=== PATIENT | female | born 1955 | race African-American/Black ===

== ENCOUNTER 2017-02-07 06:25 | Day surgery (SDC) | payer BC ==
[~2017-02-07] VITALS: Ht 151.1 cm; Wt 105.0 kg
[2017-02-07] VITALS (9 sets, daily range): BP systolic 103–147; BP diastolic 73–86; PULSE 78–89; RESP 18–20; TEMP 98.2–98.4; O2SAT 92–98
[~2017-02-07 06:25] MED LIST: 1-ME1LIQ PO; CLON.1 PO; FURO1TAB93 PO; GLIM4 PO; GLUCTAB PO; METO50CR PO; SIMV40 PO
[2017-02-07] MEDS ORDERED: GLIM4TAB PO (06:50)
[2017-02-07] MEDS ORDERED: CALC500T37 PO (06:50)
[2017-02-07] MEDS ORDERED: SIMV40TA PO (06:50)
[2017-02-07] MEDS ORDERED: METF500T PO (06:50)
[2017-02-07] MEDS ORDERED: METO50TA PO (06:50)
[2017-02-07] MEDS ORDERED: FURO40TA PO (06:50)
[2017-02-07] MEDS ORDERED: AMLO10TA2 PO (06:50)
[2017-02-07] MEDS ORDERED: WARF-23 PO (06:50)
[2017-02-07] MEDS ORDERED: CLON0.1T PO (06:50)
[2017-02-07] MEDS ORDERED: WARF-20 PO (06:50)
[2017-02-07] MEDS ORDERED: SODIUM CHLOR 0.9% 1000 ML IV SCH (07:00)
[2017-02-07 07:33] LABS: PROTHROMBIN TIME - PATIENT 10.9 SEC (9.8-11.6)
[2017-02-07] MEDS ORDERED: LIDOCAINE 1%/EPINEPHrine 1:100,000 SOLN 20 ML VIAL ONE (07:55)
[2017-02-07] MEDS ORDERED: MIDAZOLAM HCL 2 MG/2 ML VIAL ONE (08:01)
--- NOTE | 2017-02-07 09:06 | PD.RAD ---
Post CT Procedure Prog Note Pre Procedure Diagnosis: (1) Breast CA Post Procedure Diagnosis: (1) Breast CA Procedure Date: Feb 07, 2017 Supervising Radiologist: Cb Winter Anesthesia: Conscious Sedation Plan of Activity Patient to Unit: [facility] Patient Condition: Good See PACS Report for procedural detail/treatment Cb Winter MD Feb 07, 2017 09:06
[2017-02-07] MEDS ORDERED: oxyCODONE/ACETAMINOPHEN 5 MG/325 MG TAB PO PRN (09:15)
--- NOTE | 2017-02-07 09:38 | RADRPT ---
EXAM DATE/TIME: 02/07/2017 08:19 [facility] COMPARISON: No previous studies available for comparison. INDICATIONS : History of metastatic breast CA with near complete response to therapy. Solitary residual enlarging n odule in the left lung base. Biopsy has been requested SEDATION TIME: 30 minutes BIOPSY SITE: Left lung MEDICATION(S): 1.) 2.5 mg midazolam (Versed) IV 2.) 125 mcg fentanyl (Sublimaze) IV DEVICE(S): 1.) 18 gauge Tabor blunt needle 2.) 20 gauge Temno core biopsy needle MEDICAL HISTORY : Carcinoma, breast. SURGICAL HISTORY : Mastectomy, left. ENCOUNTER: Initial ACUITY: 1 day PAIN SCORE: 0/10 LOCATION: Left chest A total of five core specimen(s) were obtained and sent to the laboratory for pathologic evaluation. PROCEDURE: 1. CT guided lung biopsy. 2. Conscious sedation with continuous EKG and oximetry monitoring. 3. EKG and oximetry remained stable throughout the procedure. Prior to the procedure informed consent was obtained. Any appropriate prior imaging studies were rev iewed. Using automated exposure control and adjustment of the mA and/or kV according to patient size, radiation dose was kept as low as reasonably achievable to obtain optimal diagnostic quality images. DICOM format image data is available electronically for review and comparison. The site was prepped in a sterile fashion. Full sterile technique was used, including cap, mask, luís rile gloves and gown and a large sterile sheet. Hand hygiene and 2% chlorhexidine and/or betadine/al cohol prep was utilized per protocol for cutaneous antisepsis. The skin and subcutaneous tissues wer e infiltrated with local anesthetic solution. With CT guidance the previously identified target was localized. Biopsy was performed using the presc ribed needle as above. In total, five 20 gauge core biopsies were performed. Adequate hemostasis was obtained with compression at the puncture site. Follow-up CT scan reveals no pneumothorax. Conscious sedation was performed with the prescribed dosages and duration as above in the presence of an independent trained radiology nurse to assist in the monitoring of the patient. EKG and oximetry remained stable throughout the procedure. The patient tolerated the procedure well and there were no complications. The patient was sent to Radiology Outpatient Unit in stable condition. CONCLUSION: Uncomplicated CT guided biopsy. Cb Winter MD on February 07, 2017 at 9:35 Board Certified Radiologist. This report was verified electronically.
--- NOTE | 2017-02-07 12:46 | RADRPT ---
EXAM DATE/TIME: 02/07/2017 11:27 [facility] COMPARISON: No previous studies available for comparison. INDICATIONS : Post left lung biopsy. MEDICAL HISTORY : None. SURGICAL HISTORY : None. ENCOUNTER: Initial ACUITY: 1 day PAIN SCORE: 2/10 LOCATION: Left chest FINDINGS: No pneumothorax following left lung biopsy. Heart is enlarged. Bibasilar parenchymal consolidations l ikely related atelectasis. No effusions. Port-A-Cath on the left. CONCLUSION: No pneumothorax following lung biopsy. Kory Mena Jr., MD on February 07, 2017 at 12:44 Board Certified Radiologist. This report was verified electronically.
== END 2017-02-07 13:30 | disposition home or self-care (01) ==
LOC: HRAD 06:25 → HRIP 06:26 → HRAD 13:30
PROVIDERS: ATTEND Internal Medicine Hematology & Oncology
DX: R91.1 Solitary pulmonary nodule (principal); C50.912 Malignant neoplasm of unspecified site of left female breast; E11.9 Type 2 diabetes mellitus without complications; I10 Essential (primary) hypertension; Z79.84 Long term (current) use of oral hypoglycemic drugs; Z79.01 Long term (current) use of anticoagulants; Z90.12 Acquired absence of left breast and nipple
CPT/HCPCS: 32405; 71010; 77012; 82948; 85610; 85730; 88305; 88341; 88342; J2250; J3010; J7030